=== PATIENT | female | born 1980 | race Caucasian/White ===

== ENCOUNTER 2017-05-10 08:29 | Outpatient (CLI) | payer OTHER ==
--- NOTE | 2017-05-10 10:53 | MRI Report ---
EXAM: LEFT HIP MRI WITHOUT CONTRAST EXAM DATE: 05/10/2017 09:12 AM. CLINICAL HISTORY: PAIN IN LEFT HIP. COMPARISON: None. TECHNIQUE: Multiplanar, multisequence T1-weighted and fluid-sensitive, small lapcp-mb-bspy sequences of the hip and large modhb-th-vjle sequences of the pelvis without contrast. Other: None. FINDINGS: Bones: No fractures or subluxations. No marrow edema or bone lesions. Left Hip: No acetabular retroversion. Femoral head/neck offset is within normal limits. No effusion o r loose bodies. The articular cartilage is intact. The labrum is unremarkable on this nonarthrographi c study. The ligamentum teres is intact. Other Joints: The visualized lumbar spine, sacroiliac joints, symphysis pubis, and contralateral hip are unremarkable. Musculature: No edema or fatty atrophy. The gluteus medius and minimus tendons are normal. The visua lized hamstring tendons are normal. The ischiofemoral space is normal. Pelvic Cavity: The visualized viscera are unremarkable. No lymphadenopathy. No free fluid in the pelv is. Other: The visualized sciatic nerves are unremarkable. No bursitis. The subcutaneous tissues are unre markable. IMPRESSION: No MRI abnormalities in the hip and visualized pelvis. [facility] SECTION Referring Provider Line: [phone] SITE ID: [id number]
== END 2017-05-10 08:30 | disposition home or self-care (01) ==
LOC: DI 08:29
PROVIDERS: ATTEND Physician Assistant Medical
DX: M25.552 Pain in left hip (principal)

== ENCOUNTER 2017-06-21 08:17 | Outpatient (CLI) | payer OTHER ==
[2017-06-21] MEDS ORDERED: BUFFERED LIDOCAINE 10 ML SYRINGE IU ONE (10:24)
[2017-06-21] MEDS ORDERED: BUPIVACAINE 0.5%-EPI 1:200000 PF 10 ML VIAL SUBQ ONE (10:24)
--- NOTE | 2017-06-21 10:40 | Ultrasound Report ---
REVISED: REPORT ORIGINALLY SIGNED ON 06/11/2017@1150; ORDERS LINKED ON 2017 jll ULTRASOUND-GUIDED CORE NEEDLE BIOPSY RIGHT BREAST: 06/21/2017 CLINICAL INDICATION: Irregular nodule right upper central breast on outside ultrasound. TECHNIQUE/FINDINGS: Informed consent was obtained. Using standard aseptic technique, both 1% buffered lidocaine and Sensorcaine were injected into the right breast for local anesthesia. A small galo was made in the skin with a #11 blade. A 12-gauge Celero vacuum- assisted device was used to obtain 4 specimens. A Celero marker was placed into the biopsy cavity under ultrasound guidance. The patient was taken to a separate mammography machine, and a 2-view digital mammogram was performed, documenting the marker in the expected location and a small postbiopsy hematoma. The wound was dressed and ice applied. The patient was observed for approximately 15 minutes, then was discharged from [facility] in good condition following instructions on wound care and obtaining biopsy results. The tissue was sent for histologic analysis. IMPRESSION 1. ULTRASOUND-GUIDED BIOPSY OF THE RIGHT BREAST. 2. AN ADDENDUM WILL BE MADE TO THIS REPORT WHEN PATHOLOGY IS REVIEWED TO ESTABLISH CONCORDANCE. TD: 06/21/2017 10:38 STEPHANIE
[2017-06-21 14:31] VITALS: BP 100/63
--- NOTE | 2017-06-28 14:40 | ONCOLOGY / HEMATOLOGY ---
DATE OF SERVICE: 06/21/2017 Physician: Ritesh Robbins MD ADDENDUM TO THE ULTRASOUND-GUIDED CORE NEEDLE BIOPSY OF THE RIGHT BREAST: 06/21/2017. Procedure performed by Dr. Robbins. Pathology reviewed by Dr. Robbins. 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 These results are concordant with the imaging findings. RECOMMENDATION: Routine annual screening to commence at age 40, unless otherwise clinically indicated. The patient will make an appointment to receive results from [facility]. TD: 06/28/2017 09:48
== END 2017-06-21 08:18 | disposition home or self-care (01) ==
LOC: DI 08:17
PROVIDERS: ATTEND Physician Assistant Medical
DX: D24.1 Benign neoplasm of right breast (principal)
CPT/HCPCS: 19083; 88305